=== PATIENT | female | born 2000 | race Caucasian/White ===

== ENCOUNTER 2019-03-20 18:23 | Emergency (ER) | payer OTHER ==
[~2019-03-20] VITALS: Ht 160 cm; Wt 56.7 kg
[~2019-03-20 18:23] MED LIST: ENDUR-ACIN500 MG PO; IBUPROFEN 800800 M1 PO; PENICILLIN V P500 MG PO; TRIAMCINOLONE A80 G2 TOP
[2019-03-20 20:03] LABS: URINE BILIRUBIN NEGATIVE (Negative); URINE BLOOD NEGATIVE (Negative); URINE CLARITY CLEAR; URINE COLOR YELLOW; URINE GLUCOSE-RANDOM* NEGATIVE (Negative); URINE KETONES TRACE (Negative); URINE LEUKOCYTES-REFLEX NEGATIVE (Negative); URINE NITRITE-REFLEX NEGATIVE (Negative); URINE PROTEIN (DIPSTICK) NEGATIVE (Negative); URINE SPECIFIC GRAVITY 1.025 (1.005-1.035)
[2019-03-20] MEDS ORDERED: ZPAK PO (20:35)
[2019-03-20] MEDS ORDERED: TESSALON PERLE100 MG PO (20:38)
[2019-03-20 20:48] VITALS: BP 132/78
== END 2019-03-20 20:48 | disposition home or self-care (01) ==
LOC: ER 18:23
PROVIDERS: Nurse Practitioner
DX: J18.9 Pneumonia, unspecified organism (principal); M19.90 Unspecified osteoarthritis, unspecified site; F17.210 Nicotine dependence, cigarettes, uncomplicated